=== PATIENT | male | born 1985 | race Caucasian/White ===

== ENCOUNTER 2020-07-13 18:20 | Emergency (ER) | payer SELFPAY ==
[2020-07-13 19:52] VITALS: BP 140/89; PULSE 114; RESP 18; TEMP 36.9; O2SAT 97; BMI 25.8
--- NOTE | 2020-07-13 21:49 | ED_ITS ---
HPI - Headache General Chief Complaint: Headache Stated Complaint: headache Time Seen by Provider: 07/13/20 20:49 Source: patient Mode of arrival: ambulatory History of Present Illness HPI Narrative: This is a 35-year-old male without significant past medical history he states that he had a 10/10 headache that started approximately 11 30 this morning and is associated with left by pressure and some associated blurriness with the pain radiating back along the temporal parietal area into the occipital region. This is been associated with photosensitivity, eye tearing, sinus congestion, mild nausea but denies any unilateral numbness/ti ngling/weakness, gait disturbance, or speech abnormalities. Patient states he has been having these headaches with the last 1 approximately 4 days ago. He does describe a fall from a 12 ft ladder in [place] approximately 2 months ago and states that he was not evaluated and this was not associated with loss of consciousness. Related Data Allergies Allergy/AdvReac Type Severity Reaction Status Date / Time No Known Allergies Allergy Verified 07/13/20 19:52 Review of Systems Review of Systems: Pertinent positives and negatives as stated in HPI and 10 point review of systems is otherwise negative. PMFSH Past Medical History Source: nursing notes reviewed Medical History Patient denies medical problems Social History Social History Alcohol intake: never Smoking Status: Former smoker Use of substances other than those prescribed or required for medical reasons: No Advance Directives: No Physical Exam Vital Signs: Vital Signs: Last Vital Signs Temp 97.6 F 07/13/20 22:04 Pulse 80 07/13/20 23:59 Resp 18 07/13/20 23:59 BP 138/97 H 07/13/20 23:59 Pulse Ox 99 07/13/20 23:59 Body Mass Index 25.8 VITAL SIGNS: Reviewed. GENERAL: Well developed, well nourished, in no acute distress. HEAD: Normocephalic/atraumatic, palpation over the left side of the scalp EYES: PERRLA, EOMI intact without pain, no nystagmus IOP: OD-16, OS-14 EARS: Ext canals without abnormality, TMs non-bulging and non-erythematous, no ear pain on tragus or Pinna movement NOSE: Right nare patent, left nare congestion OROPHARYNX: no oral lesions noted, posterior pharynx clear NECK: Supple, no adenopathy LUNGS: Normal breath sounds. No adventitious sounds or accessory muscle use. SpO2<97> CARDIOVASCULAR: Regular rate and rhythm without noted murmurs ABDOMEN: Soft, non-tender, non-distended with bowel sounds. SKIN: Inspection of the skin reveals no rashes NEUROLOGIC: Alert and oriented x 4. Strength and sensation to light touch were grossly intact x 4, no pronator drift, cranial nerves 2-12 are grossly intact.. Course Course Course Narrative: This is a 35-year-old male with history and clinical presentation consistent with cluster headaches, TBI, migraines, clinically low suspicion for giant cell arteritis or acute glaucoma. -Tylenol, Toradol, 100% oxygen, CT of the head On re-evaluation neither Tylenol or Toradol has decreased patient's reported pain level of 6/10 further and on placement of 100% oxygen patient denies any improvement in his symptoms and is requesting to be discharged at this time. Patient was encouraged to wait and attempt lidocaine 4% intranasally as additional adjunct to current symptoms, however he declines at this time. ESR - 2 which is inconsistent with any inflammatory process such as giant cell arteritis and eye exam inconsistent with acute glaucoma. CT of the head is unlikely to yield any additional information given that the injury was 2 months ago and this imaging modality would not identify TBI and there is no suspicion for seizure and no noted focal deficits for concerns regarding mass. Patient was strongly encouraged to follow-up with a primary care provider for further outpatient management and re-evaluation. MDM - Headache Lab Data Labs: Lab Results 07/13/20 Range/Units 22:51 ESR 2 (0-15) MM/HR Discharge Plan Discharge Clinical Impression: Headache Qualifiers: Headache type: cluster Headache chronicity pattern: unspecified pattern Intractability: not intractable Qualified Code(s): G44.009 - Cluster headache syndrome, unspecified, not intractable Patient Disposition: Home, Self-Care Instructions: Cluster Headache (ED) Additional Instructions: 1. Tylenol 1000 mg, orally, every 6 hours as needed for headache. Do not exceed 4000 mg within 24 hours. 2. Ibuprofen 400 mg, orally with milk or food, every 6 hours as needed for headache. Strongly recommend taking this in conjunction with the Tylenol for synergistic affect. 3. Please establish care with a primary care provider in either [place] or [place] whichever state you decide to recite in for further re-evaluation and outpatient management. Do not hesitate to return to this emergency department should you experience any acute worsening of her symptoms that would include unilateral numbness/tingling/weakness, speech changes. Referrals: Physician,None [Primary Care Provider] - 2 days
[2020-07-13] MEDS: Ketorolac Tromethamine 15 MG/ML VIAL IM (21:54)
[2020-07-13] MEDS: Acetaminophen 325 MG TABLET 975 MG PO (21:54)
[2020-07-13 22:04] VITALS: BP 128/94; PULSE 96; RESP 18; TEMP 36.4
[2020-07-13 23:00] VITALS: PULSE 80; RESP 16
[2020-07-13 23:41] LABS: Erythrocyte Sedimentation Rate 2 MM/HR (0-15)
[2020-07-13 23:59] VITALS: BP 138/97; PULSE 80; RESP 18; O2SAT 99
--- NOTE | 2020-07-14 00:53 | PC.NURSE ---
0 - REPORT FROM AYANA GRIFFITH. PT AWAKE, ALERT AND ORIENTED X 3. SKIN WARM AND DRY. NEUROS INTACT. CADENA FREELY. PT REPORTS CONTINUED PAIN DESPITE PAIN MEDICATION. REPORTS PAIN FOR WEEKS. DISCUSSED PLAN OF CARE WITH DR. STRANGE. QUESTIONED NEED FOR CT SCAN. MD WILLING TO ORDER HOWEVER AT THIS POINT, PT REQUESTING TO LEAVE. STATES THAT HE'S BEEN UP ALL DAY AND WANTS TO GO HOME TO BED. DR STRANGE IN TO SPEAK WITH PATIENT. PLAN FOR DC HOME. PT STATES 100% NRB O2 THERAPY DID NOT HELP HIS HEADACHE.
== END 2020-07-14 00:56 | disposition home or self-care (01) ==
PROVIDERS: Emergency Provider Student in an Organized Health Care Education/Training Program
DX: G44.009 Cluster headache syndrome, unspecified, not intractable (principal)
CPT/HCPCS: 36415; 85652; 96372; 99284; J1885

== ENCOUNTER 2022-02-11 23:20 | Emergency (ER) | payer SELFPAY ==
--- NOTE | ~2022-02-11 | XR_ITS ---
EXAMINATION: XR SHOULDER, LEFT CLINICAL INFORMATION: Post reduction COMPARISON: Earlier same date TECHNIQUE: Three views of the left shoulder. XR/XR shoulder LT min 2V FINDINGS/IMPRESSION: Successful reduction of the anterior left glenohumeral dislocation. Hill-Sachs impaction deformity suspected. There is a well-corticated ossific density projecting over the inferior alveolar recess which may represent an intra-articular body.
--- NOTE | ~2022-02-11 | CT_ITS ---
EXAMINATION: NONCONTRAST HEAD CT NONCONTRAST CERVICAL SPINE CT INDICATION INFORMATION: Fall. Pain. COMPARISON: None TECHNIQUE: Separate noncontrast CT examinations of the head and cervical spine were performed. Coronal and sagittal images were created for each examination at the technologist workstation. This CT examination was performed using dose optimization techniques as appropriate, variously including the following: *Automated exposure control *Adjustment of mA and/or kV according to patient size (this includes techniques or standardized protocols for targeted exams where dose is matched to indication/reason for exam; i.e. extremities or head) *Use of iterative reconstruction technique DLP: 1141 mGy-cm FINDINGS: Head: There is no evidence of acute intracranial hemorrhage or territorial infarction. No abnormal mass effect or midline shift is seen. Unger to white matter differentiation is well preserved. No extra-axial fluid collections are identified. No hydrocephalus. No significant volume loss. There is no abnormal attenuation within the brain parenchyma. No acute osseous or soft tissue abnormality. The mastoid air cells and visualized portions of the paranasal sinuses are well aerated. Cervical spine: There is anatomic alignment of the vertebral bodies and posterior elements. The atlantoaxial and atlantooccipital articulations are intact. Vertebral body heights are maintained. Small endplate osteophytes present throughout the cervical spine. No evidence of acute fracture. No prevertebral soft tissue swelling. Visualized portions of the lung apices are unremarkable. The thyroid gland is unremarkable. CT/CT cervical spine wo IV con IMPRESSION: No acute intracranial pathology. No cervical spine fracture or traumatic malalignment.
--- NOTE | ~2022-02-11 | XR_ITS ---
EXAMINATION: XR SHOULDER, LEFT CLINICAL INFORMATION: Dislocation COMPARISON: None TECHNIQUE: Three views of the left shoulder. XR/XR shoulder LT min 2V FINDINGS/IMPRESSION: Anterior dislocation of left humeral head with respect to the glenoid. Associated Hill-Sachs impaction deformity, age indeterminant. No osseous Bankart. A chromic clavicular joint intact.
--- NOTE | ~2022-02-11 | CT_ITS ---
EXAMINATION: NONCONTRAST HEAD CT NONCONTRAST CERVICAL SPINE CT INDICATION INFORMATION: Fall. Pain. COMPARISON: None TECHNIQUE: Separate noncontrast CT examinations of the head and cervical spine were performed. Coronal and sagittal images were created for each examination at the technologist workstation. This CT examination was performed using dose optimization techniques as appropriate, variously including the following: *Automated exposure control *Adjustment of mA and/or kV according to patient size (this includes techniques or standardized protocols for targeted exams where dose is matched to indication/reason for exam; i.e. extremities or head) *Use of iterative reconstruction technique DLP: 1141 mGy-cm FINDINGS: Head: There is no evidence of acute intracranial hemorrhage or territorial infarction. No abnormal mass effect or midline shift is seen. Unger to white matter differentiation is well preserved. No extra-axial fluid collections are identified. No hydrocephalus. No significant volume loss. There is no abnormal attenuation within the brain parenchyma. No acute osseous or soft tissue abnormality. The mastoid air cells and visualized portions of the paranasal sinuses are well aerated. Cervical spine: There is anatomic alignment of the vertebral bodies and posterior elements. The atlantoaxial and atlantooccipital articulations are intact. Vertebral body heights are maintained. Small endplate osteophytes present throughout the cervical spine. No evidence of acute fracture. No prevertebral soft tissue swelling. Visualized portions of the lung apices are unremarkable. The thyroid gland is unremarkable. CT/CT head/brain wo IV con IMPRESSION: No acute intracranial pathology. No cervical spine fracture or traumatic malalignment.
--- NOTE | 2022-02-11 23:35 | PC.NURSE ---
PT COMPLAINING OF EXCRUCIATING PAIN TO LEFT SHOULDER, EAR NOSE THROAT SURGEON AWARE
[2022-02-11 23:39] VITALS: BP 95/72; PULSE 82; RESP 20; TEMP 36.6; O2SAT 96; BMI 29.0
[2022-02-12 02:04] VITALS: BP 158/108; PULSE 110; RESP 18; O2SAT 97
[2022-02-12] MEDS: Acetaminophen 325 MG TABLET 975 MG PO (02:49)
[2022-02-12] MEDS: Ibuprofen 600 MG TABLET PO (02:49)
--- NOTE | 2022-02-12 03:13 | ED.EXTPRO ---
HPI - Extremity Problem General Chief complaint: Extremity Injury, Upper Stated complaint: Fall/Shoulder pain Time Seen by Provider: 02/12/22 02:21 Source: patient Mode of arrival: ambulatory History of Present Illness HPI Narrative: 36-year-old male with presentation for left shoulder dislocation, which he states has happened multiple times before and occurred this evening when he had been drinking and fell down some stairs without striking his head or loss of consciousness. Related Data Allergies Allergy/AdvReac Type Severity Reaction Status Date / Time No Known Allergies Allergy Verified 07/13/20 19:52 Review of Systems Review of Systems: Pertinent positives and negatives as stated in HPI 10 point review of systems otherwise negative. PMFSH Past Medical History Source: nursing notes reviewed Medical History Patient denies medical problems Social History Social History Alcohol intake: never Advance Directives: No Advance Directives Information Provided: Yes Physical Exam Vital Signs: Vital Signs: Last Vital Signs Temp 97.9 F 02/11/22 23:39 Pulse 110 H 02/12/22 02:04 Resp 18 02/12/22 02:04 BP 158/108 H 02/12/22 02:04 Pulse Ox 97 02/12/22 02:04 O2 Del Method 02/12/22 02:04 BMI result Body Mass Index 29.0 VITAL SIGNS: Reviewed. GENERAL: Well developed, well nourished, in no acute distress. HEAD: Normocephalic/atraumatic EYES: PERRLA, EOMI EARS: Ext canals without abnormality OROPHARYNX: no oral lesions noted, posterior pharynx clear LUNGS: Normal breath sounds. No adventitious sounds or accessory muscle use. SpO2<97> CARDIOVASCULAR: Regular rate and rhythm without noted murmurs ABDOMEN: Soft, non-tender, non-distended with bowel sounds. MUSCULOSKELETAL: No tenderness, deformities, or effusions noted on gross inspection. EXTREMITIES: No cyanosis, clubbing or edema; LEFT SHOULDER: Obvious deformity consistent with dislocation, palpable radial/ulnar pulses with sensation intact SKIN: Inspection of the skin reveals no rashes NEUROLOGIC: Alert and oriented x 4. Strength and sensation to light touch were grossly intact x 4. Course Course Course Narrative: 36-year-old male with history and clinical presentation consistent with shoulder dislocation which was further corroborated by imaging studies. Scapular massage and mild traction or utilize an left shoulder was reduced and placed in a sling with post reduction films showing good joint alignment. Review of all imaging studies show good post reduction films but Hill-Sachs impact suspected. All results discussed with patient at bedside, he was provided with an orthopedic referral as well. Procedures Orthopedic Joint Reduction Joint #1: Time Out Performed: No Side: left Joint Reduction Location: shoulder Shoulder Technique Used (if applicable): scapula manipulation Technique used: traction/counter-traction Post-reduction neuro exam: intact Post-reduction vascular: intact Post Reduction X-Ray Obtained: Yes Post Reduction X-Ray Results: reduced Splint Applied: Yes Patient Tolerated Procedure: well and no complications Discharge Plan Discharge Clinical Impression: Dislocated shoulder, Hill Sachs deformity, left Patient Disposition: Home, Self-Care Instructions: Shoulder Dislocation (ED), How to Use a Sling (ED) Additional Instructions: 1. Recommend [id number] Tylenol/ibuprofen as needed for pain control and also recommend applying ice to unexposed skin for 10-15 minutes, 3 to 4 times a day. 2. You will need delete sling in place for 2 weeks to ensure good stabilization of your left shoulder. 3. Follow-up with your primary care provider on Monday morning. Successful reduction of the anterior left glenohumeral dislocation. Hill-Sachs impaction deformity suspected. There is a well-corticated ossific density projecting over the inferior alveolar recess which may represent an intra-articular body.? Return to the ER for worsening symptoms. Referrals: Suresh Garrido MD [Physician] -
[2022-02-12] MEDS: Ketorolac Tromethamine 15 MG/ML VIAL IM (03:21)
== END 2022-02-12 03:00 | disposition home or self-care (01) ==
PROVIDERS: Emergency Provider Student in an Organized Health Care Education/Training Program
DX: M24.412 Recurrent dislocation, left shoulder (principal)
CPT/HCPCS: 23650; 70450; 72125; 73030; 96372; 99283; 99284; J1885